=== PATIENT | male | born 1960 | race Hispanic/Latino ===

== ENCOUNTER → 2017-08-29 | Outpatient (CLI) | payer OTHER | END | disposition home or self-care (01) | LOC: OIH 13:48 | PROVIDERS: ATTEND Internal Medicine | DX: I51.9 Heart disease, unspecified (principal); M47.895 Other spondylosis, thoracolumbar region | CPT/HCPCS: 71046 ==

== ENCOUNTER 2021-05-27 16:08 | Emergency (ER) | payer MEDICAID, OTHER ==
[~2021-05-27] VITALS: Ht 180.3 cm; Wt 104.3 kg
[2021-05-27 19:21] LABS: POTASSIUM 3.9 mmol/L (3.5-5.1)
[2021-05-27 19:25] LABS: BASOPHILS % (AUTO) 0.3 % (0.0-5.0); EOSINOPHILS % (AUTO) 0.5 % (0.0-8.0); HEMATOCRIT 49.4 % (42-54); MEAN CORPUSCULAR HEMOGLOBIN 32.2 pg (27.0-33.0); MEAN CORPUSCULAR HGB CONC 34.6 g/dL (32.0-36.0); MONOCYTES % (AUTO) 7.3 % (3.0-13.0); NEUTROPHILS % (AUTO) 73.1 % (40.0-77.0); PLATELET COUNT (AUTO) 193 K/uL (130-400); RED BLOOD CELL COUNT(AUTO) 5.31 MIL/uL (4.50-6.20); RED CELL DISTRIBUTION WIDTH 13.2 % (11.0-15.5)
[2021-05-27 19:28] LABS: ALBUMIN 4.2 g/dL (3.5-5.0); BILIRUBIN,TOTAL 0.4 mg/dL (0.2-1.0); TOTAL PROTEIN, SERUM 8.1 g/dL (6.0-8.3)
[2021-05-27] MEDS ORDERED: IBUP-2077 PO (19:54)
[2021-05-27 19:55] VITALS: BP 120/85
== END 2021-05-27 20:07 | disposition home or self-care (01) ==
LOC: EDH 16:08
DX: R07.89 Other chest pain (principal); E11.9 Type 2 diabetes mellitus without complications; M54.2 Cervicalgia; M54.50 Low back pain, unspecified; E78.00 Pure hypercholesterolemia, unspecified; I10 Essential (primary) hypertension; Z95.1 Presence of aortocoronary bypass graft; V49.49XA Driver injured in collision with other motor vehicles in traffic accident, initial encounter; Y93.89 Activity, other specified; Y92.89 Other specified places as the place of occurrence of the external cause; Y99.8 Other external cause status
CPT/HCPCS: 36415; 70450; 71045; 72100; 72125; 80053; 84484; 85025; 93005

== ENCOUNTER 2021-10-07 09:49 | Inpatient (IN) | payer MEDICAID ==
[2021-10-07] VITALS (14 sets, daily range): BP systolic 82–164; BP diastolic 43–60
[~2021-10-07] VITALS: Ht 180.3 cm; Wt 98.3 kg
[~2021-10-07 09:49] MED LIST: IBUP-2077 PO
[2021-10-07] MEDS ORDERED: OCTREOTIDE ACETATE 100 MCG/ML AMP IV SCH (10:00)
[2021-10-07] MEDS ORDERED: PANTOPRAZOLE 40 MG/VIAL IVP ONE (10:00)
[2021-10-07] MEDS ORDERED: METO25TA6 PO (10:28)
[2021-10-07] MEDS ORDERED: METF-444 PO (10:28)
[2021-10-07] MEDS ORDERED: GLIP5TAB11 PO (10:28)
[2021-10-07] MEDS ORDERED: CHOL500045 PO (10:28)
[2021-10-07] MEDS ORDERED: OMEG-125 PO (10:28)
[2021-10-07] MEDS ORDERED: SPIR25TA6 PO (10:28)
[2021-10-07] MEDS ORDERED: ATOR20TA65 PO (10:28)
[2021-10-07] MEDS ORDERED: OMEP20TA20 PO (10:28)
[2021-10-07] MEDS ORDERED: ASCO500T20 PO (10:28)
[2021-10-07] MEDS ORDERED: DAPA5TAB PO (10:28)
[2021-10-07] MEDS ORDERED: LIDOCAINE RC (10:28)
[2021-10-07 10:39] LABS: APPEARANCE,URINE Clear (CLEAR); BILIRUBIN,URINE Negative (NEGATIVE); COLOR,URINE Yellow (YELLOW); GLUCOSE, URINE (UA) >=1000 mg/dL (NEGATIVE); KETONES,URINE >=80 mg/dL (NEGATIVE); LEUKOCYTE ESTERASE ,URINE Negative (NEGATIVE); NITRATE,URINE Negative (NEGATIVE); OCCULT BLOOD,URINE Negative (NEGATIVE); PROTEIN,URINE Negative (NEGATIVE); UROBILINOGEN,URINE 0.2 mg/dL (0.2-1.0)
[2021-10-07 10:43] LABS: BASOPHILS % (AUTO) 0.2 % (0.0-5.0); HEMATOCRIT 26.6 % (42-54); LYMPHOCYTES % (AUTO) 18.7 % (21.0-51.0); MEAN CORPUSCULAR HEMOGLOBIN 34.6 pg (27.0-33.0); MEAN CORPUSCULAR HGB CONC 36.5 g/dL (32.0-36.0); MONOCYTES % (AUTO) 8.1 % (3.0-13.0); NEUTROPHILS % (AUTO) 70.3 % (40.0-77.0); PLATELET COUNT (AUTO) 191 K/uL (130-400); RED CELL DISTRIBUTION WIDTH 13.2 % (11.0-15.5)
[2021-10-07 10:44] LABS: INR 0.94 (0.85-1.15); POTASSIUM 3.6 mmol/L (3.5-5.1); PROTHROMBIN TIME 10.3 SEC (9.6-11.6)
[2021-10-07 10:49] LABS: ALBUMIN 3.3 g/dL (3.5-5.0); BILIRUBIN,TOTAL 0.5 mg/dL (0.2-1.0); TOTAL PROTEIN, SERUM 6.2 g/dL (6.0-8.3)
[2021-10-07 11:25] LABS: BACTERIA,URINE Few /HPF (None Seen); RBC,URINE 0-1 /HPF (0-1); WBC,URINE 0-1 /HPF (0-1)
[2021-10-07] MEDS ORDERED: 0.9%NACL 1000ML 2,000 ML IV ONE (11:34)
[2021-10-07] MEDS ORDERED: NOREPINEPHRIN 4MG/NS 250ML 250 ML IV ONE ×3 (11:58→18:32)
[2021-10-07] MEDS ORDERED: CEFTRIAXONE 1G VIAL IVP SCH (13:00)
[2021-10-07] MEDS ORDERED: IOHEXOL 350 MG/ML 100ML INFUS..BTL IV ONE (13:07)
[2021-10-07] MEDS: 0.9%NACL 1000ML 1,000 ML IV SCH ×2 (14:00→23:28)
[2021-10-07] MEDS ORDERED: CEFTRIAXONE 1G VIAL ONE (14:02)
[2021-10-07 14:23] LABS: HEMATOCRIT 24.4 % (42-54)
[2021-10-07] MEDS: PANTOPRAZOLE 40MG INJ 80 MG in 0.9%NACL 100ML 100 ML IVP SCH ×2 (14:37→22:51)
[2021-10-07] MEDS: OCTREOTIDE ACETATE 1,250 MCG in 0.9% NACL 250ML IV SCH (14:37)
[2021-10-07] MEDS: ZOSYN 3.375GM +NS 50ML IV SCH ×2 (14:37→23:27)
[2021-10-07] MEDS ORDERED: PEG 3350/NA SULF,BICARB,CL/KCL 4000 ML SOLN PO ONE (17:00)
[2021-10-07] MEDS ORDERED: ONDANSETRON 4MG INJ ONE (18:55)
[2021-10-07] MEDS: NOREPINEPHRIN 4MG/NS 250ML 250 ML IV SCH (21:57)
[2021-10-07 22:43] LABS: HEMATOCRIT 25.5 % (42-54)
[2021-10-08] VITALS (79 sets, daily range): BP systolic 91–122; BP diastolic 37–77
[2021-10-08] MEDS: NOREPINEPHRIN 4MG/NS 250ML 250 ML IV SCH ×3 (01:04→08:10)
[2021-10-08 04:30] LABS: HEMATOCRIT 23.6 % (42-54)
[2021-10-08] MEDS: ZOSYN 3.375GM +NS 50ML IV SCH ×3 (05:00→20:17)
[2021-10-08] MEDS ORDERED: PHARMACY COMMUNICATION MISC SCH ×2 (06:00→11:00)
[2021-10-08] MEDS: PANTOPRAZOLE 40MG INJ 80 MG in 0.9%NACL 100ML 100 ML IVP SCH ×2 (08:31→20:17)
[2021-10-08] MEDS: 0.9%NACL 1000ML 1,000 ML IV SCH (08:32)
[2021-10-08 09:47] LABS: MEAN CORPUSCULAR HEMOGLOBIN 31.9 pg (27.0-33.0); MEAN CORPUSCULAR HGB CONC 32.5 g/dL (32.0-36.0); MEAN CORPUSCULAR VOLUME 98.2 fL (79-99); PLATELET COUNT (AUTO) 134 K/uL (130-400); RED BLOOD CELL COUNT(AUTO) 2.85 MIL/uL (4.50-6.20); RED CELL DISTRIBUTION WIDTH 16.2 % (11.0-15.5); WHITE BLOOD COUNT (AUTO) 18.2 K/uL (4.8-10.8)
[2021-10-08 10:07] LABS: ALBUMIN 2.6 g/dL (3.5-5.0); BILIRUBIN,TOTAL 0.4 mg/dL (0.2-1.0); CREATININE 1.4 mg/dL (0.5-1.5); POTASSIUM 4.4 mmol/L (3.5-5.1); TOTAL PROTEIN, SERUM 5.2 g/dL (6.0-8.3)
[2021-10-08 10:24] LABS: BAND NEUTROPHILS % (MANUAL) 1 % (0-2); LYMPHOCYTES % (MANUAL) 11 % (22-44); MAN.DIFF COMMENT-IMPRESSION MANUAL DIFFERENTIAL; MONOCYTES % (MANUAL) 4 % (2-9); PLATELET MORPHOLOGY COMMENT ADEQUATE; SEGMENTED NEUTROPHILS % 84 % (40-70)
[2021-10-08] MEDS ORDERED: DEXTROSE 50%-WATER 50 ML DISP.SYRIN IV PRN (11:00)
[2021-10-08] MEDS ORDERED: SODIUM BICARB 50MEQ 50ML VIAL IV SCH (11:00)
[2021-10-08] MEDS ORDERED: INSULIN REGULAR, HUMAN 3ML 100 UNIT in 0.9%NACL 100ML 99 ML IV PRN ×2 (11:00)
[2021-10-08] MEDS ORDERED: ZOSYN 3.375GM +NS 50ML IV SCH (11:00)
[2021-10-08] MEDS ORDERED: GLUCAGON 1MG KIT 1 MG ML IM PRN (11:00)
[2021-10-08] MEDS ORDERED: INSULIN GLARGINE 100 UNITS/ML 10 ML VIAL SQ SCH ×2 (11:00→21:00)
[2021-10-08] MEDS ORDERED: SODIUM BICARB 50MEQ 50ML VIAL 150 MEQ in DEXTROSE 5%-WATER 1,000 ML IV SCH (11:00)
[2021-10-08] MEDS: PHENYLEPHRINE HCL 10 MG in 0.9% NACL 250ML 250 ML IV PRN ×4 (11:22→22:28)
[2021-10-08] MEDS: LACTATED RINGERS 1000ML 1,000 ML IV SCH ×3 (11:26→22:24)
[2021-10-08 11:27] LABS: ABG BASE EXCESS -18.1 mmol/L (-2.0-3.0); ABG OXYGEN SATURATION 94.5 % (95.0-99.0); ABG PCO2 22 mmHg (35-48)
[2021-10-08 11:28] LABS: HEMOGLOBIN A1C 8.2 % (4.0-6.0)
[2021-10-08 11:45] LABS: INFLUENZA TYPE A NEGATIVE FOR TYPE A (NEG); INFLUENZA TYPE B NEGATIVE FOR TYPE B (NEG)
[2021-10-08] MEDS ORDERED: COMPOUND IV REFRIGERATED 1 EACH IVSOLN MISC PRN (12:00)
[2021-10-08 12:15] LABS: POTASSIUM 4.3 mmol/L (3.5-5.1)
[2021-10-08 12:21] LABS: CREATININE 1.5 mg/dL (0.5-1.5)
[2021-10-08] MEDS ORDERED: LACTATED RINGERS 1000ML 1,000 ML IV SCH (14:30)
[2021-10-08 14:54] LABS: ABG BASE EXCESS -8.9 mmol/L (-2.0-3.0); ABG HCO3 15.2 mmol/L (21.0-28.0); ABG OXYGEN SATURATION 93.6 % (95.0-99.0); ABG PCO2 28 mmHg (35-48)
[2021-10-08 15:11] LABS: HEMATOCRIT 20.9 % (42-54)
[2021-10-08 15:25] LABS: CREATININE 1.3 mg/dL (0.5-1.5); POTASSIUM 3.4 mmol/L (3.5-5.1)
[2021-10-08 22:58] LABS: CREATININE 1.1 mg/dL (0.5-1.5); HEMATOCRIT 17.9 % (42-54); POTASSIUM 3.1 mmol/L (3.5-5.1)
[2021-10-09] VITALS (85 sets, daily range): BP systolic 84–131; BP diastolic 38–77
[2021-10-09] MEDS: PHENYLEPHRINE HCL 10 MG in 0.9% NACL 250ML 250 ML IV PRN ×5 (02:45→20:00)
[2021-10-09 03:28] LABS: BASOPHILS % (AUTO) 0.2 % (0.0-5.0); EOSINOPHILS % (AUTO) 0.1 % (0.0-8.0); LYMPHOCYTES % (AUTO) 18.2 % (21.0-51.0); MEAN CORPUSCULAR HGB CONC 33.5 g/dL (32.0-36.0); MEAN CORPUSCULAR VOLUME 95.4 fL (79-99); MONOCYTES % (AUTO) 12.3 % (3.0-13.0); NEUTROPHILS % (AUTO) 67.5 % (40.0-77.0); NUCLEATED RED BLOOD CELLS 1.1 % (0.0-0.19); RED BLOOD CELL COUNT(AUTO) 2.19 MIL/uL (4.50-6.20); RED CELL DISTRIBUTION WIDTH 15.2 % (11.0-15.5); WHITE BLOOD COUNT (AUTO) 12.6 K/uL (4.8-10.8)
[2021-10-09 03:38] LABS: HEMATOCRIT 20.9 % (42-54)
[2021-10-09] MEDS ORDERED: POTASSIUM CHLORIDE 10MEQ/100ML 100 ML IV PRN (04:00)
[2021-10-09 04:06] LABS: ALBUMIN 1.8 g/dL (3.5-5.0); BILIRUBIN,TOTAL 0.2 mg/dL (0.2-1.0); POTASSIUM 3.2 mmol/L (3.5-5.1); TOTAL PROTEIN, SERUM 3.7 g/dL (6.0-8.3)
[2021-10-09 05:13] LABS: PLATELET COUNT (AUTO) 77 K/uL (130-400)
[2021-10-09] MEDS: ZOSYN 3.375GM +NS 50ML IV SCH ×3 (06:00→20:06)
[2021-10-09] MEDS: PANTOPRAZOLE 40MG INJ 80 MG in 0.9%NACL 100ML 100 ML IVP SCH ×2 (06:36→14:29)
[2021-10-09 07:34] LABS: HEMATOCRIT 22.4 % (42-54)
[2021-10-09] MEDS ORDERED: DEXTROSE 50%-WATER 50 ML DISP.SYRIN IV PRN (08:00)
[2021-10-09] MEDS ORDERED: GLUCAGON 1MG KIT 1 MG ML IM PRN (08:00)
[2021-10-09] MEDS: MIDODRINE HCL 5 MG TABLET PO SCH ×3 (08:20→20:06)
[2021-10-09] MEDS: INSULIN GLARGINE 100 UNITS/ML 10 ML VIAL SQ SCH ×2 (08:21→20:42)
[2021-10-09] MEDS ORDERED: KCL 20 MEQ ERTAB PO SCH (08:30)
[2021-10-09] MEDS: DEXTROSE 5%-LACTATED RINGERS 1,000 ML IV SCH ×3 (08:35→20:42)
[2021-10-09 08:51] LABS: POTASSIUM 3.1 mmol/L (3.5-5.1)
[2021-10-09 08:55] LABS: CREATININE 0.9 mg/dL (0.5-1.5)
[2021-10-09] MEDS ORDERED: IOHEXOL 350 MG/ML 100ML INFUS..BTL IV ONE (09:52)
[2021-10-09] MEDS: INSULIN HUMULIN R 100 UNIT/ML 3ML SQ SCH ×3 (12:53→23:24)
[2021-10-09 13:33] LABS: HEMATOCRIT 22.2 % (42-54)
[2021-10-09] MEDS: OCTREOTIDE ACETATE 1,250 MCG in 0.9% NACL 250ML IV SCH (16:03)
[2021-10-09 16:21] LABS: CREATININE 0.9 mg/dL (0.5-1.5); POTASSIUM 3.1 mmol/L (3.5-5.1)
[2021-10-09] MEDS ORDERED: LIDOCAINE HCL-MPF 1% 2ML VIAL IV PRN (17:00)
[2021-10-09] MEDS ORDERED: POTASSIUM CHLORIDE 20MEQ/100ML 100 ML IV PRN (17:00)
[2021-10-09] MEDS ORDERED: LACTATED RINGERS 1000ML 1,000 ML IV SCH (17:30)
[2021-10-09] MEDS ORDERED: KCL 20 MEQ ERTAB PO ONE (17:45)
[2021-10-09 19:12] LABS: HEMATOCRIT 21.8 % (42-54)
[2021-10-10] VITALS (74 sets, daily range): BP systolic 84–150; BP diastolic 37–92
[2021-10-10] MEDS: PHENYLEPHRINE HCL 10 MG in 0.9% NACL 250ML 250 ML IV PRN ×2 (00:20→13:23)
[2021-10-10 00:55] LABS: HEMATOCRIT 20.1 % (42-54)
[2021-10-10] MEDS: PANTOPRAZOLE 40MG INJ 80 MG in 0.9%NACL 100ML 100 ML IVP SCH ×3 (02:00→23:27)
[2021-10-10 02:26] LABS: CREATININE 0.8 mg/dL (0.5-1.5); POTASSIUM 3.1 mmol/L (3.5-5.1)
[2021-10-10] MEDS: DEXTROSE 5%-LACTATED RINGERS 1,000 ML IV SCH ×2 (04:00→16:24)
[2021-10-10] MEDS: POTASSIUM CHLORIDE 10% ELIXIR 20 MEQ/15 ML UDCUP PO PRN ×2 (05:00→07:00)
[2021-10-10] MEDS: ZOSYN 3.375GM +NS 50ML IV SCH ×3 (06:00→20:21)
[2021-10-10] MEDS: INSULIN HUMULIN R 100 UNIT/ML 3ML SQ SCH ×4 (06:00→20:33)
[2021-10-10 07:28] LABS: HEMATOCRIT 19.9 % (42-54)
[2021-10-10] MEDS: MIDODRINE HCL 5 MG TABLET PO SCH ×3 (08:22→20:21)
[2021-10-10] MEDS: INSULIN GLARGINE 100 UNITS/ML 10 ML VIAL SQ SCH ×2 (08:23→20:33)
[2021-10-10 08:47] LABS: LYMPHOCYTES % (MANUAL) 24 % (22-44); MONOCYTES % (MANUAL) 4 % (2-9); SEGMENTED NEUTROPHILS % 72 % (40-70)
[2021-10-10 08:48] LABS: MAN.DIFF COMMENT-IMPRESSION MANUAL DIFFERENTIAL
[2021-10-10 08:50] LABS: MEAN CORPUSCULAR HEMOGLOBIN 31.9 pg (27.0-33.0); MEAN CORPUSCULAR HGB CONC 34.6 g/dL (32.0-36.0); NUCLEATED RED BLOOD CELLS 0.8 % (0.0-0.19); PLATELET COUNT (AUTO) 104 K/uL (130-400); RED BLOOD CELL COUNT(AUTO) 2.26 MIL/uL (4.50-6.20); RED CELL DISTRIBUTION WIDTH 16.6 % (11.0-15.5); WHITE BLOOD COUNT (AUTO) 9.9 K/uL (4.8-10.8)
[2021-10-10 08:51] LABS: PLATELET MORPHOLOGY COMMENT SLIGHTLY DECREASED
[2021-10-10] MEDS: KCL 20 MEQ ERTAB PO PRN ×2 (11:22→16:32)
[2021-10-10 14:01] LABS: HEMATOCRIT 21.3 % (42-54)
[2021-10-10] MEDS ORDERED: PEG 3350/NA SULF,BICARB,CL/KCL 4000 ML SOLN PO SCH (15:00)
[2021-10-11] VITALS (25 sets, daily range): BP systolic 88–138; BP diastolic 43–80
[2021-10-11 01:13] LABS: HEMATOCRIT 21.9 % (42-54)
[2021-10-11] MEDS: ZOSYN 3.375GM +NS 50ML IV SCH ×3 (04:08→21:18)
[2021-10-11 04:27] LABS: LYMPHOCYTES % (AUTO) 32.8 % (21.0-51.0); MEAN CORPUSCULAR HEMOGLOBIN 31.5 pg (27.0-33.0); MEAN CORPUSCULAR VOLUME 92.6 fL (79-99); MONOCYTES % (AUTO) 8.8 % (3.0-13.0); NEUTROPHILS % (AUTO) 57.1 % (40.0-77.0); NUCLEATED RED BLOOD CELLS 1.4 % (0.0-0.19); PLATELET COUNT (AUTO) 57 K/uL (130-400); RED BLOOD CELL COUNT(AUTO) 2.16 MIL/uL (4.50-6.20); RED CELL DISTRIBUTION WIDTH 17.1 % (11.0-15.5)
[2021-10-11 04:34] LABS: INR 0.99 (0.85-1.15); PROTHROMBIN TIME 10.8 SEC (9.6-11.6)
[2021-10-11 04:51] LABS: CREATININE 0.7 mg/dL (0.5-1.5); POTASSIUM 3.2 mmol/L (3.5-5.1)
[2021-10-11 06:27] LABS: PARTIAL THROMBOPLASTIN TIME 21.7 SEC (26.3-35.5)
[2021-10-11] MEDS: INSULIN HUMULIN R 100 UNIT/ML 3ML SQ SCH ×4 (07:30→21:22)
[2021-10-11] MEDS: INSULIN GLARGINE 100 UNITS/ML 10 ML VIAL SQ SCH ×2 (07:30→21:21)
[2021-10-11] MEDS ORDERED: MAGNESIUM 2GM PREMIX 50ML 50 ML IV SCH (08:30)
[2021-10-11] MEDS: MIDODRINE HCL 5 MG TABLET PO SCH ×4 (09:00→21:18)
[2021-10-11] MEDS: DEXTROSE 5%-WATER 1,000 ML IV SCH (09:01)
[2021-10-11] MEDS ORDERED: PROPOFOL 10 MG/ML 20ML VIAL IV ONE ×2 (09:57→09:58)
[2021-10-11] MEDS: PANTOPRAZOLE 40MG INJ 80 MG in 0.9%NACL 100ML 100 ML IVP SCH (11:42)
[2021-10-11 12:33] LABS: HEMATOCRIT 26.6 % (42-54)
[2021-10-11] MEDS: POTASSIUM CHLORIDE 10% ELIXIR 20 MEQ/15 ML UDCUP PO PRN ×3 (13:02→16:55)
[2021-10-12] MEDS: DEXTROSE 5%-WATER 1,000 ML IV SCH (03:15)
[2021-10-12] MEDS: ZOSYN 3.375GM +NS 50ML IV SCH ×2 (04:01→13:05)
[2021-10-12 04:43] VITALS: BP 95/58
[2021-10-12 05:16] LABS: BASOPHILS % (AUTO) 0.2 % (0.0-5.0); LYMPHOCYTES % (AUTO) 23.4 % (21.0-51.0); MEAN CORPUSCULAR HEMOGLOBIN 30.8 pg (27.0-33.0); MEAN CORPUSCULAR HGB CONC 33.1 g/dL (32.0-36.0); MEAN CORPUSCULAR VOLUME 93.2 fL (79-99); NEUTROPHILS % (AUTO) 66.3 % (40.0-77.0); NUCLEATED RED BLOOD CELLS 1.9 % (0.0-0.19); PLATELET COUNT (AUTO) 129 K/uL (130-400); RED BLOOD CELL COUNT(AUTO) 2.79 MIL/uL (4.50-6.20); RED CELL DISTRIBUTION WIDTH 18.5 % (11.0-15.5); WHITE BLOOD COUNT (AUTO) 6.5 K/uL (4.8-10.8)
[2021-10-12 05:43] LABS: CREATININE 0.8 mg/dL (0.5-1.5); MAGNESIUM 2.1 mg/dL (1.80-2.40); PHOSPHORUS 3.1 mg/dL (2.5-4.9); POTASSIUM 3.3 mmol/L (3.5-5.1)
[2021-10-12] MEDS: KCL 20 MEQ ERTAB PO PRN (06:12)
[2021-10-12] MEDS: INSULIN GLARGINE 100 UNITS/ML 10 ML VIAL SQ SCH (06:14)
[2021-10-12] MEDS: INSULIN HUMULIN R 100 UNIT/ML 3ML SQ SCH ×2 (06:14→11:06)
[2021-10-12 08:00] VITALS: BP 91/33
[2021-10-12] MEDS: MIDODRINE HCL 5 MG TABLET PO SCH ×2 (08:25→13:05)
[2021-10-12] MEDS ORDERED: EPOETIN ALFA-EPBX (NON-ESRD) 10,000 UNIT/ML VIAL SQ SCH (11:00)
[2021-10-12] MEDS ORDERED: DEXTROSE 5%-WATER 1,000 ML IV SCH (11:00)
[2021-10-12] MEDS ORDERED: IRON SUCROSE COMPLEX 500 MG in 0.9% NACL 250ML 250 ML IV SCH (11:00)
[2021-10-12 11:01] LABS: RETICULOCYTE % (AUTO) 7.4 % (0.42-2.23)
[2021-10-12 11:15] LABS: % IRON SATURATION 5.7 % (30-44)
[2021-10-12 11:26] LABS: PHOSPHORUS 3.4 mg/dL (2.5-4.9); THYROID STIMULATING HORMONE 1.48 uIU/mL (0.36-3.74)
[2021-10-12 12:00] VITALS: BP 94/57
[2021-10-12] MEDS ORDERED: LEVO500T90 PO (14:42)
[2021-10-12] MEDS ORDERED: Midodrine Hcl PO (14:45)
[2021-10-13] MEDS ORDERED: KCL 20 MEQ ERTAB PO SCH (09:00)
== END 2021-10-12 15:40 | disposition home or self-care (01) | DRG 720 ==
LOC: EDH 09:49 → EDHIP 09:50 → UNDOADMIN 12:56 → EDHIP 19:27 → 2BH 19:27 → 2DH 10-11 16:39
PROVIDERS: ADMIT Internal Medicine; ATTEND Internal Medicine
PROC: 30233N1 Transfusion of Nonautologous Red Blood Cells into Peripheral Vein, Percutaneous Approach (ICD-10-PCS; principal; 2021-10-07)
PROC: 0DJ08ZZ Inspection of Upper Intestinal Tract, Via Natural or Artificial Opening Endoscopic (ICD-10-PCS; 2021-10-09)
PROC: 0DJD8ZZ Inspection of Lower Intestinal Tract, Via Natural or Artificial Opening Endoscopic (ICD-10-PCS; 2021-10-09)
DX: A41.9 Sepsis, unspecified organism (principal); R57.8 Other shock; K57.31 Diverticulosis of large intestine without perforation or abscess with bleeding; D62 Acute posthemorrhagic anemia; D69.6 Thrombocytopenia, unspecified; E86.1 Hypovolemia; E11.10 Type 2 diabetes mellitus with ketoacidosis without coma; Z20.822 Contact with and (suspected) exposure to COVID-19; E87.0 Hyperosmolality and hypernatremia; E78.5 Hyperlipidemia, unspecified; K64.8 Other hemorrhoids; K80.20 Calculus of gallbladder without cholecystitis without obstruction; G30.9 Alzheimer's disease, unspecified; F02.80 Dementia in other diseases classified elsewhere, unspecified severity, without behavioral disturbance, psychotic disturbance, mood disturbance, and anxiety; E11.65 Type 2 diabetes mellitus with hyperglycemia; E78.00 Pure hypercholesterolemia, unspecified; I10 Essential (primary) hypertension; I25.10 Atherosclerotic heart disease of native coronary artery without angina pectoris; Z95.1 Presence of aortocoronary bypass graft; Z79.84 Long term (current) use of oral hypoglycemic drugs
CPT/HCPCS: 36415; 36600; 43235; 45378; 71045; 74174; 74177; 80048; 80053; 81001; 82010; 82270; 82607; 82728; 82746; 82803; 82948; 83036; 83540; 83550; 83605; 83735; 84100; 84145; 84443; 84484; 85014; 85018; 85025; 85045; 85610; 85730; 86850; 86900; 86901; 86923; 87040; 87635; 87804; 93306; 93356; 99291; C9113; G0378; J0696; J1756; J1815; J2354; J2370; J2405; J2543; J2704; J3480; J3490; J7030; J7050; J7070; P9016; Q9967

== ENCOUNTER 2022-08-23 09:50 | Emergency (ER) | payer MEDICAID ==
[~2022-08-23] VITALS: Ht 180.3 cm; Wt 99.3 kg
[~2022-08-23 09:50] MED LIST changes: +ASCO500T20 PO; +ATOR20TA65 PO; +CHOL500045 PO; +DAPA5TAB PO; +GLIP5TAB11 PO; -IBUP-2077 PO; +LEVO-70 PO; +LIDOCAINE RC; +METF-444 PO; +Midodrine Hcl PO; +OMEG-125 PO; +OMEP20TA20 PO; +SPIR25TA6 PO
[2022-08-23 10:52] LABS: BASOPHILS % (AUTO) 0.4 % (0.0-5.0); EOSINOPHILS % (AUTO) 0.8 % (0.0-8.0); HEMATOCRIT 43.6 % (42-54); LYMPHOCYTES % (AUTO) 17.1 % (21.0-51.0); MEAN CORPUSCULAR HEMOGLOBIN 31.4 pg (27.0-33.0); MEAN CORPUSCULAR HGB CONC 34.9 g/dL (32.0-36.0); MEAN CORPUSCULAR VOLUME 90.1 fL (79-99); NEUTROPHILS % (AUTO) 73.2 % (40.0-77.0); PLATELET COUNT (AUTO) 200 K/uL (130-400); RED BLOOD CELL COUNT(AUTO) 4.84 MIL/uL (4.50-6.20); RED CELL DISTRIBUTION WIDTH 13.6 % (11.0-15.5); WHITE BLOOD COUNT (AUTO) 9.2 K/uL (4.8-10.8)
[2022-08-23 11:00] LABS: INR 0.94 (0.85-1.15); PROTHROMBIN TIME 10.3 SEC (9.6-11.6)
[2022-08-23 11:02] LABS: PARTIAL THROMBOPLASTIN TIME 28.8 SEC (26.3-35.5)
[2022-08-23 11:04] LABS: ALBUMIN 3.8 g/dL (3.5-5.0); POTASSIUM 4.1 mmol/L (3.5-5.1); TOTAL PROTEIN, SERUM 7.4 g/dL (6.0-8.3)
[2022-08-23 11:12] LABS: APPEARANCE,URINE CLEAR (CLEAR); BILIRUBIN,URINE NEGATIVE (NEGATIVE); COLOR,URINE LIGHT-YELLOW (YELLOW); GLUCOSE, URINE (UA) >=1000 mg/dL (NEGATIVE); KETONES,URINE NEGATIVE (NEGATIVE); LEUKOCYTE ESTERASE ,URINE NEGATIVE Leu/uL (NEGATIVE); NITRATE,URINE NEGATIVE (NEGATIVE); PROTEIN,URINE NEGATIVE (NEGATIVE); UROBILINOGEN,URINE 0.2 mg/dL (0.2-1.0)
[2022-08-23 11:16] LABS: RBC,URINE 0-1 /HPF (0-1); WBC,URINE 0-1 /HPF (0-1)
[2022-08-23 12:50] VITALS: BP 134/76
== END 2022-08-23 13:17 | disposition home or self-care (01) ==
LOC: EDH 09:50
DX: K64.9 Unspecified hemorrhoids (principal); I10 Essential (primary) hypertension; E11.9 Type 2 diabetes mellitus without complications; E78.00 Pure hypercholesterolemia, unspecified; Z79.84 Long term (current) use of oral hypoglycemic drugs; Z79.899 Other long term (current) drug therapy; Z95.1 Presence of aortocoronary bypass graft
CPT/HCPCS: 36415; 80053; 81001; 82270; 83605; 84484; 85025; 85610; 85730; 93005